=== PATIENT | male | born 1955 | race Caucasian/White ===

== ENCOUNTER → 2017-02-08 | Outpatient (CLI) | payer BC ==
--- NOTE | 2017-02-08 11:35 | RADIOLOGY REPORT PS360 ---
UGI SERIES W/ AIR HISTORY: Epigastric pain and lower abdominal pain ABD DISCOMFORT ORDERING PHYSICIAN: Stanislav gNuyễn MD PATIENT AGE: 61 years COMPARISON: None FINDINGS: The esophagus, stomach, and duodenum have an unremarkable appearance. There is no evidence of hiatal hernia. No ulcer or mass evident. No mucosal abnormalities apparent. There is normal peristalsis. The duodenal C-loop is nondisplaced. FLUOROSCOPY TIME : 1 minute and 43 seconds. IMPRESSION: Negative upper GI
--- NOTE | 2017-02-08 11:35 | RADIOLOGY REPORT PS360 ---
UGI SERIES W/ AIR HISTORY: Epigastric pain and lower abdominal pain ABD DISCOMFORT ORDERING PHYSICIAN: Stanislav Nguyễn MD PATIENT AGE: 61 years COMPARISON: None FINDINGS: The esophagus, stomach, and duodenum have an unremarkable appearance. There is no evidence of hiatal hernia. No ulcer or mass evident. No mucosal abnormalities apparent. There is normal peristalsis. The duodenal C-loop is nondisplaced. FLUOROSCOPY TIME : 1 minute and 43 seconds. IMPRESSION: Negative upper GI
--- NOTE | 2017-02-08 14:33 | RADIOLOGY REPORT PS360 ---
US ABD(COMPLETE-MULTI ORGANS HISTORY: ABD DISCOMFORT ORDERING PHYSICIAN: Stanislav Nguyễn MD PATIENT AGE: 61 years COMPARISON: None FINDINGS: PANCREAS:Unremarkable. No obvious mass or abnormal fluid collection. No ductal dilatation LIVER:No focal liver lesions demonstrated. Homogeneous echogenicity. No intrahepatic biliary ductal dilatation evident. There is appropriate direction portal blood flow with normal caliber portal vein. No biliary dilatation RIGHT KIDNEY:Unremarkable. Normal size and echogenicity. No hydronephrosis LEFT KIDNEY:Normal size. No hydronephrosis. Echogenic foci are present in the left kidney nonspecific GALLBLADDER:No gallstones, gallbladder wall thickening, pericholecystic fluid, or biliary dilatation. AORTA:No evidence of aneurysmal dilatation. SPLEEN:Mildly enlarged at 14 cm. ASCITES:None demonstrated. IMPRESSION: 1. Borderline splenomegaly. 2. No gallstones, gallbladder wall thickening, or biliary dilatation. 3. Small echogenic foci within left kidney which could be due to small punctate calculi.
== END ==
LOC: RT 07:40 → RAD 09:30
DX: R10.9 Unspecified abdominal pain (principal); R07.89 Other chest pain

== ENCOUNTER 2017-08-09 11:51 | Emergency (ER) | payer OTHER, BC ==
[~2017-08-09 11:51] MED LIST: ATORVASTATIN CA20 M1 PO; KEFLEX 500MG.500 MG PO
[2017-08-09 12:00] VITALS: BP 168/79
--- OUTSIDE RECORDS SUMMARY | 2017-09-04 06:39 | External Medical Summary Rpt ---
Author Author MAGALIE Address Unknown Phone [email or web address] Purpose Continuity of Care Document - through 2016 Problems Code Diagnosis DOS Provider Status S41.119A LACERATION W/O FOREIGN BODY OF UNSP UPPER ARM, INIT ENCNTR S61.211A LACERATION W/O FB OF L IDX FNGR W/O DAMAGE TO NAIL, INIT
--- OUTSIDE RECORDS SUMMARY | 2017-09-04 06:39 | External Medical Summary Rpt ---
Author Author MAGALIE Gonzalez, MAGALIE Gonzalez Organization [employer] Address Unknown Phone Unavailable
--- OUTSIDE RECORDS SUMMARY | 2017-09-04 06:39 | External Medical Summary Rpt ---
Demographics Preferred Language Citizen Of [place] Marital Status Unknown Amish Affiliation Unknown Race Unknown Ethnic Group Unknown Author Author MAGALIE Address Unknown Phone Immunization No patient found.
--- OUTSIDE RECORDS SUMMARY | 2017-09-04 06:39 | External Medical Summary Rpt ---
Author Author MAGALIE Gonzalez, MAGALIE Gonzaelz Organization [employer] Address Unknown Phone Unavailable
--- OUTSIDE RECORDS SUMMARY | 2017-09-04 06:39 | External Medical Summary Rpt ---
Author Author MAGALIE Address Unknown Phone [email or web address] Purpose Continuity of Care Document - through 2016 Problems Code Diagnosis DOS Provider Status S41.119A LACERATION W/O FOREIGN BODY OF UNSP UPPER ARM, INIT ENCNTR S61.211A LACERATION W/O FB OF L IDX FNGR W/O DAMAGE TO NAIL, INIT
--- OUTSIDE RECORDS SUMMARY | 2017-09-04 06:39 | External Medical Summary Rpt ---
Demographics Preferred Language K[place] Marital Status Unknown Amish Affiliation Unknown Race Unknown Ethnic Group Unknown Author Author MAGALIE Address Unknown Phone Immunization No patient found.
== END 2017-08-09 12:04 | disposition home or self-care (01) ==
LOC: UTC 11:51
DX: S61.211D Laceration without foreign body of left index finger without damage to nail, subsequent encounter (principal)

== ENCOUNTER → 2017-08-20 | Outpatient (CLI) | payer BC ==
--- NOTE | 2017-08-20 20:33 | RADIOLOGY REPORT PS360 ---
[id number] VIEWS HISTORY: ACUTE PAINshoulder pain no trauma Patient Age: 61 years: Male Ordering Physician: Juan C Munguia MD TECHNIQUE: 3 views right shoulder COMPARISON :None FINDINGS . Glenohumeral joint is intact., Humeral head and neck intact. There may be slight narrowing subacromial space with slight roughening at the superior margin of the base the humeral head. Nonspecific but can be seen with impingement and rotator cuff demise. AC joint hypertrophic Degenerative changes noted The scapula appears intact. Right lung apex clear. IMPRESSION: Glenohumeral joint is intact. Moderate AC joint degeneration/arthropathy evident Suggestion slight narrowing subacromial space which can be seen with rotator cuff demise or tear
== END ==
LOC: RAD 16:48
DX: M25.511 Pain in right shoulder (principal)

== ENCOUNTER → 2017-09-03 | Outpatient (CLI) | payer BC | LOC: RAD 13:24 | DX: M25.511 Pain in right shoulder (principal) ==

== ENCOUNTER → 2017-09-07 | Outpatient (CLI) | payer BC | LOC: RAD 07:57 | DX: M25.511 Pain in right shoulder (principal) ==